=== PATIENT | female | born 1965 | race Caucasian/White ===

== ENCOUNTER 2017-07-10 20:51 | Emergency (ER) | payer OTHER ==
--- NOTE | 2017-07-10 21:03 | PDOC ---
History of Present Illness <Christine Wilson - Last Filed: 07/10/17 22:06> <Anahi Ojeda - Last Filed: 07/11/17 00:37> - General Chief Complaint: Chest Pain Stated Complaint: NAUSEA, CHEST PAIN, LEFT SHOULDER Time Seen by Provider: 07/10/17 20:54 - History of Present Illness Initial Comments: 07/10/17 21:54 Patient is a 52 F, with PMHx of hypothyroidism, who presents with nausea, chest and left shoulder discomfort, approximately 30 minutes prior to arrival. Patient states she was in the car with her family with sudden onset of SOB and chest numbness that radiates to her left shoulder. She states her symptoms lasted for approximately 5-10 minutes and had improved shortly after arriving to the ER. She reports feeling nauseous not too long before the shortness of breath and chest numbness. She reports 1 previous episode of SOB while driving too fast on the road. Denies pain/numbness in her fingers or mouth. Denies recent numbness or swelling in legs. Denies diaphoresis.Denies recent travel. Denies familial history of blood clots. Medications: Synthroid 50 mcg PO daily Social Hx: denies tobacco use. Family Hx: Both parents from strokes. Surgical Hx: denies. (Christine Wilson) Past History <Christine Wilson - Last Filed: 07/10/17 22:06> <Anahi Ojeda - Last Filed: 07/11/17 00:37> - Past Medical History Allergies/Adverse Reactions: Allergies Allergy/AdvReac Type Severity Reaction Status Date / Time No Known Allergies Allergy Verified 07/10/17 21:02 Home Medications: Ambulatory Orders Levothyroxine [Synthroid -] 50 mcg PO DAILY 07/10/17 Review of Systems <Christine Wilson - Last Filed: 07/10/17 22:06> <Anahi Ojeda - Last Filed: 07/11/17 00:37> - Review of Systems Comments:: 07/10/17 21:54 GENERAL/CONSTITUTIONAL: No fever or chills. No weakness. HEAD, EYES, EARS, NOSE AND THROAT: No change in vision. No ear pain or discharge. No sore throat. CARDIOVASCULAR: + chest numbness. No chest pain. + shortness of breath. RESPIRATORY: No cough, wheezing, or hemoptysis. GASTROINTESTINAL: No nausea, vomiting, diarrhea or constipation. GENITOURINARY: No dysuria, frequency, or change in urination. MUSCULOSKELETAL: + left shoulder numbness. No joint or muscle swelling or pain. No neck or back pain. SKIN: No rash NEUROLOGIC: No headache, vertigo, loss of consciousness, or change in strength/ sensation. ENDOCRINE: No increased thirst. No abnormal weight change. HEMATOLOGIC/LYMPHATIC: No anemia, easy bleeding, or history of blood clots. ALLERGIC/IMMUNOLOGIC: No hives or skin allergy. (Christine Wilson) *Physical Exam <Christine Wilson - Last Filed: 07/10/17 22:06> <Anahi Ojeda - Last Filed: 07/11/17 00:37> - Vital Signs Last Vital Signs Temp Pulse Resp BP Pulse Ox 97.6 F 75 16 140/95 100 07/10/17 20:53 07/10/17 20:53 07/10/17 20:53 07/10/17 20:53 07/10/17 20:53 - Physical Exam Comments: 07/10/17 21:56 GENERAL: Awake, alert, and fully oriented, in no acute distress HEAD: No signs of trauma EYES: PERRLA, EOMI, sclera anicteric, conjunctiva clear ENT: Auricles normal inspection, hearing grossly normal, nares patent, oropharynx clear without exudates. Moist mucosa NECK: Normal ROM, supple, no lymphadenopathy, JVD, or masses LUNGS: Breath sounds equal, clear to auscultation bilaterally. No wheezes, and no crackles HEART: Regular rate and rhythm, normal S1 and S2, no murmurs, rubs or gallops ABDOMEN: Soft, nontender, normoactive bowel sounds. No guarding, no rebound. No masses EXTREMITIES: Normal range of motion, no edema. No clubbing or cyanosis. No cords, erythema, or tenderness NEUROLOGICAL: Cranial nerves II through XII grossly intact. Normal speech, normal gait SKIN: Warm, Dry, normal turgor, no rashes or lesions noted. (Christine Wilson) Heart Score/ECG Review <Christine Wilson - Last Filed: 07/10/17 22:06> - History History: Slightly suspicious - Electrocardiogram EKG: Normal - Age Age: 45-65 - Risk Factors Risk Factors Heart Score: No Hx Hypercholesterolemia, No Hx Hypertension, No Hx Diabetes, No Smoking History, No Positive family hx of cardiac disease, No Hx Obesity Based on the list above the patient has:: No risk factors known - Troponin Troponin: </= normal limit - Score Heart Score - Total: 1 <Anahi Ojeda - Last Filed: 07/11/17 00:37> - ECG Intrepretation Comment:: 07/10/17 21:39 Normal sinus rhythm Normal ECG Vent. rate 79 bpm. (Chrsitine Wilson) ED Treatment Course - LABORATORY CBC & Chemistry Diagram: 07/10/17 21:15 07/10/17 21:10 <Christine Wilson - Last Filed: 07/10/17 22:06> - LABORATORY CBC & Chemistry Diagram: 07/10/17 21:15 07/10/17 21:10 <Anahi Ojeda - Last Filed: 07/11/17 00:37> - ADDITIONAL ORDERS Additional order review: Laboratory Results 07/10/17 07/10/17 07/10/17 21:15 21:10 21:10 PT with INR 10.7 INR 0.95 L Sodium 132 L Potassium 3.8 Chloride 103 Carbon Dioxide 23 Anion Gap 6 L BUN 19 H Creatinine 0.7 Creat Clearance w eGFR > 60 Random Glucose 106 Calcium 8.9 Total Bilirubin 0.7 AST 19 ALT 21 Alkaline Phosphatase 66 Creatine Kinase 103 Troponin I < 0.03 Total Protein 6.9 Albumin 4.2 07/10/17 21:15 RBC 4.31 MCV 85.1 MCHC 35.9 RDW 12.2 MPV 8.6 Neutrophils % 60.1 Lymphocytes % 29.1 Monocytes % 7.3 Eosinophils % 2.7 Basophils % 0.8 Progress Note <Christine Wilson - Last Filed: 07/10/17 22:06> <Anahi Ojeda - Last Filed: 07/11/17 00:37> - Progress Note Progress Note: Documentation has been prepared under my direction and personally reviewed by me in its entirety. I attest that this documented accurately reflects all work, treatment, procedures and medical decision making performed by me. (Anahi Ojeda) Medical Decision Making <Christine Wilson - Last Filed: 07/10/17 22:06> <Anahi Ojeda - Last Filed: 07/11/17 00:37> - Medical Decision Making 12-lead electrocardiogram is performed and shows normal sinus rhythm at 79 bpm; waveform, intervals and axis are all normal. no evidence of acute ST or T- wave abnormalities. As noted above, this 52-year-old woman presents with a brief (5-10 minute) history of shortness of breath and chest/left shoulder "numbness" that occurred while she was riding in an automobile just prior to presentation. Symptoms resolved spontaneously as she was presenting. Patient states that she sometimes feels these symptoms when she is anxious or stressed. She admits to being anxious occasionally well riding in automobiles. No other associated symptoms. Patient has no risk factors for coronary artery disease Exam as noted Laboratory evaluation shows evidence of mild prerenal azotemia (BUN 19/ creatinine 0.7); troponin is not elevated. CBC and the remainder of the labs are essentially normal. Patient will be discharged with instructions to avoid strenuous activity over the next few days. 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 Her next scheduled shift is on July 13 (next shift on July 15). She is advised not to work on Thursday and to follow- up with her PCP on Thursday or Thursday. Meanwhile, if she has any recurrent symptoms she should go to the nearest emergency room (patient lives on [address]) (Anahi Ojeda) *DC/Admit/Observation/Transfer <Christine Wilson - Last Filed: 07/10/17 22:06> <Anahi Ojeda - Last Filed: 07/11/17 00:37> Diagnosis at time of Disposition: Atypical chest pain - Discharge Dispostion Disposition: HOME Condition at time of disposition: Stable - Patient Instructions Printed Discharge Instructions: DI for Atypical Chest Pain Additional Instructions: rest; avoid strenuous exercise for the next few days drink plenty of water Follow-up with your primary care doctor on July 13 No work until July 15 Return to ER immediately if you have recurrent shortness of breath/chest discomfort - Post Discharge Activity Forms/Work/School Notes: Back to Work
[2017-07-10 21:15] VITALS: BP 140/95; PULSE 75; TEMP 97.6; BMI 28.3
[2017-07-10 21:30] LABS: BASO % 0.8 % (0-2.0); EOS % 2.7 % (0-4.5); HEMATOCRIT 36.7 % (32.4-45.2); HEMOGLOBIN 13.1 GM/dl (10.7-15.3); LYMPH % 29.1 % (8-40); MCH 30.5 pg (25.7-33.7); MCHC 35.9 g/dl (32.0-36.0); MEAN CELL VOLUME 85.1 fl (80-96); MEAN PLT VOLUME 8.6 fl (7.5-11.1); MONO % 7.3 % (3.8-10.2); NEUT % 60.1 % (42.8-82.8); PLATELET COUNT 248 K/MM3 (134-434); RBC 4.31 M/mm3 (3.60-5.2); RDW 12.2 % (11.6-15.6); WHITE BLOOD COUNT 4.8 K/mm3 (4.0-10.8)
[2017-07-10 21:39] LABS: INR 0.95 (0.82-1.09); PROTHROMBIN TIME (PATIENT) 10.7 SEC (10.2-13.0)
[2017-07-10 21:40] LABS: ALBUMIN 4.2 g/dl (3.5-5.0); ALK PHOS 66 U/L (32-92); ANION GAP 6 (8-16); BILIRUBIN,TOTAL 0.7 mg/dl (0.2-1.0); BLOOD UREA NITROGEN 19 mg/dl (7-18); CALCIUM 8.9 mg/dl (8.4-10.2); CHLORIDE 103 mmol/L (98-107); CO2 23 mmol/L (22-28); CREATININE 0.7 mg/dl (0.6-1.3); GLUCOSE,RANDOM 106 mg/dl (74-106); POTASSIUM 3.8 mmol/L (3.5-5.1); SGOT/AST 19 U/L (10-42); SGPT/ALT 21 U/L (10-40); SODIUM 132 mmol/L (136-145); TOT PROT 6.9 g/dl (6.4-8.3)
--- NOTE | 2017-07-15 13:12 | EKG ---
Test Reason : Blood Pressure : / mmHG Vent. Rate : 079 BPM Atrial Rate : 079 BPM P-R Int : 146 ms QRS Dur : 078 ms QT Int : 402 ms P-R-T Axes : 062 036 040 degrees QTc Int : 460 ms NORMAL SINUS RHYTHM NORMAL ECG NO PREVIOUS ECGS AVAILABLE Confirmed by ARMINDA DAVIS MD ([id number] on 07/15/2017 1:11:46 PM Referred By: MD PERKINS Confirmed By:ARMINDA DAVIS MD
== END 2017-07-10 22:19 | disposition home or self-care (01) ==
LOC: FER 20:51
DX: R07.89 Other chest pain (principal)
CPT/HCPCS: 36415; 80053; 82550; 84484; 85025; 85610; 93005; 99283-25